=== PATIENT | female | born 1990 | race Caucasian/White ===

== ENCOUNTER 2016-12-20 14:18 | Outpatient (CLI) | payer OTHER ==
[~2016-12-20] VITALS: Ht 170.2 cm; Wt 84.5 kg
[~2016-12-20 14:18] MED LIST: AMBIEN 10MG10 MG PO; AMOXICILLIN/CLA1 TA1 PO; BENTYL 20MG TAB20 MG PO; DESYREL 50MG50 MG PO; EPI EZ PEN1 MG/ML IM; FLEXERIL 1010 MG/TAB PO; KAPIDEX; KLONOPIN 0.5MG0.5 MG PO; LEXAPRO 10MG10 MG PO; LEXAPRO20 MG PO; LORTAB 5/500 501 TAB PO; MOTRIN 800800 MG/TAB PO; MULTIPLE VITAMI1 TAB PO; PERCOCET 325 MG1 TA2 PO; PRENATAL VITAMI1 TAB PO; RISPERDAL 0.5M0.5 MG PO; TRINESSA1 TAB PO; TYLENOL PM EXTR1 TA1 PO
[2016-12-20] MEDS ORDERED: NEXPLANON68 MG ID (14:59)
[2016-12-20 15:00] VITALS: BP 123/80; PULSE 92; TEMP 98.4
[2016-12-20 18:00] VITALS: BP 116/69; PULSE 88; TEMP 98.6
[2016-12-28] MEDS ORDERED: COMPAZINE 110 MG/TAB PO (14:41)
[2016-12-28] MEDS ORDERED: PRILOSEC 20MG20 MG PO (14:42)
[2017-01-26] MEDS ORDERED: REGLAN 10MG10 MG/TAB PO (11:12)
[2017-02-23] MEDS ORDERED: AMBIEN 10MG10 MG PO (15:21)
== END 2016-12-20 18:05 | disposition home or self-care (01) ==
LOC: EUO 14:18
DX: E86.0 Dehydration (principal); R51 Headache; R53.83 Other fatigue; R11.0 Nausea
CPT/HCPCS: J1200; J1885; J2405; J7030

== ENCOUNTER 2016-12-22 12:00 | Emergency (ER) | payer OTHER ==
[~2016-12-22] VITALS: Ht 167.6 cm; Wt 63.2 kg
[~2016-12-22 12:00] MED LIST changes: +NEXPLANON68 MG ID
[2016-12-22] MEDS ORDERED: NEXPLANON68 MG ID (12:21)
[2016-12-22 12:22] VITALS: BP 128/72; PULSE 96; TEMP 98
[2016-12-22 13:20] LABS: BASO % 0.5 % (0.0-2.0); EOS # 0.1 (0.0-0.7); EOS % 1.7 % (0-4.0); GRAN # 3.2 (1.4-6.5); GRAN % 48.4 % (42.2-75.2); HEMATOCRIT 38.5 % (37.0-47.0); HEMOGLOBIN 12.9 g/dl (12.5-16.0); LYMPH # 2.8 (1.2-3.4); LYMPH % 42.1 % (20.0-51.0); MEAN CELL VOLUME 84 fl (80.0-100.0); MEAN CORPUSCULAR HEMOGLOBIN 28 pg (27.0-31.0); MEAN CORPUSCULAR HGB CONC 34 g/dl (33.0-37.0); MONO # 0.5 (0.1-0.6); MONO % 7.1 % (1.7-9.3); PLATELET COUNT 379 K/mm3 (130-400); RED BLOOD COUNT 4.57 M/mm3 (4.10-5.30); REDCELL DISTRIBUTION WIDTH-CV 12.7 % (11.5-14.5); WHITE BLOOD COUNT 6.6 K/mm3 (4.8-10.8)
[2016-12-22 13:38] LABS: ALANINE AMINOTRANSFERASE 36 U/L (9-52); ALKALINE PHOSPHATASE 68 U/L (50-136); ANION GAP 12 mmol/L (7-16); BILIRUBIN,TOTAL 0.7 mg/dL (0.0-1.0); BLOOD UREA NITROGEN 8 mg/dL (7-17); CARBON DIOXIDE 24 mmol/L (22-30); CHLORIDE 103 mmol/L (98-107); CREATININE, serum 0.68 mg/dL (0.52-1.25); GLUCOSE 82 mg/dL (74-106); POTASSIUM 3.8 mmol/L (3.4-5.0); SODIUM 140 mmol/L (137-145); TOTAL PROTEIN 7.2 gm/dL (6.4-8.2)
[2016-12-22 13:40] LABS: C-REACTIVE PROTEIN < 0.5 mg/dL (0.0-0.9)
[2016-12-22 13:43] LABS: PH 6 (5-8); URINE APPEARANCE Hazy; URINE BACTERIA Rare /hpf; URINE BILIRUBIN Negative (NEGATIVE); URINE BLOOD Negative (NEGATIVE); URINE COLOR Yellow; URINE GLUCOSE Negative (NEGATIVE); URINE KETONE Negative (NEGATIVE); URINE RBC 0-2 /hpf; URINE UROBILINOGEN Negative (NEGATIVE)
[2016-12-22] MEDS ORDERED: ZOFRAN ODT4 MG PO (14:16)
[2016-12-28] MEDS ORDERED: COMPAZINE 110 MG/TAB PO (14:41)
[2016-12-28] MEDS ORDERED: PRILOSEC 20MG20 MG PO (14:42)
[2017-01-26] MEDS ORDERED: REGLAN 10MG10 MG/TAB PO (11:12)
[2017-02-23] MEDS ORDERED: AMBIEN 10MG10 MG PO (15:21)
== END 2016-12-22 15:12 | disposition home or self-care (01) ==
LOC: COL.ER 12:00
PROVIDERS: Physician Assistant
DX: R11.2 Nausea with vomiting, unspecified (principal); G43.909 Migraine, unspecified, not intractable, without status migrainosus; R53.81 Other malaise; R10.13 Epigastric pain
CPT/HCPCS: J1885; J2405; J2550; J7030

== ENCOUNTER → 2016-12-28 | Outpatient (CLI) | payer OTHER ==
[~2016-12-28] VITALS: Ht 167.6 cm; Wt 84.5 kg
[~2016-12-28] MED LIST changes: +CARAFATE 1GM1 G PO; +COMPAZINE 110 MG/TAB PO; +ELIQUIS 5MG PO; +PRILOSEC 20MG20 MG PO; +REGLAN 10MG10 MG/TAB PO; +ZOFRAN ODT4 MG PO
[2016-12-28 14:44] VITALS: BP 118/80; PULSE 97; TEMP 98.5
== END ==
LOC: EUO 14:26
DX: G43.A1 Cyclical vomiting, in migraine, intractable (principal)
CPT/HCPCS: J1200; J1885; J2405; J7030

== ENCOUNTER 2017-01-01 17:16 | Emergency (ER) | payer OTHER ==
[~2017-01-01] VITALS: Ht 167.6 cm; Wt 84.5 kg
[~2017-01-01 17:16] MED LIST changes: -CARAFATE 1GM1 G PO; -ELIQUIS 5MG PO; -REGLAN 10MG10 MG/TAB PO
[2017-01-01 17:18] VITALS: TEMP 98.9
[2017-01-01] MEDS ORDERED: CARAFATE 1GM1 G PO (17:21)
[2017-01-01 18:08] LABS: PH 6 (5-8); URINE APPEARANCE Hazy; URINE BACTERIA Rare /hpf; URINE BILIRUBIN Negative (NEGATIVE); URINE BLOOD Negative (NEGATIVE); URINE COLOR Yellow; URINE GLUCOSE Negative (NEGATIVE); URINE KETONE Negative (NEGATIVE); URINE RBC 0-2 /hpf; URINE UROBILINOGEN Negative (NEGATIVE)
[2017-01-01 18:32] LABS: ADJUSTED CALCIUM 8.9 mg/dL (8.4-10.2); ALBUMIN 4.3 gm/dL (3.5-5.0); BILIRUBIN,TOTAL 0.7 mg/dL (0.0-1.0); CALCIUM 9.1 mg/dL (8.4-10.2); CREATININE, serum 0.69 mg/dL (0.52-1.25); POTASSIUM 3.4 mmol/L (3.4-5.0); TOTAL PROTEIN 7.5 gm/dL (6.4-8.2)
[2017-01-01 18:38] LABS: BASO % 0.6 % (0.0-2.0); EOS # 0.2 (0.0-0.7); EOS % 2.3 % (0-4.0); GRAN # 2.7 (1.4-6.5); GRAN % 41.8 % (42.2-75.2); HEMATOCRIT 37.1 % (37.0-47.0); HEMOGLOBIN 12.8 g/dl (12.5-16.0); LYMPH % 47.3 % (20.0-51.0); MEAN CELL VOLUME 82 fl (80.0-100.0); MEAN CORPUSCULAR HEMOGLOBIN 28 pg (27.0-31.0); MEAN CORPUSCULAR HGB CONC 35 g/dl (33.0-37.0); MEAN PLATELET VOLUME 9.3 fl (7.4-10.4); MONO # 0.5 (0.1-0.6); MONO % 7.8 % (1.7-9.3); PLATELET COUNT 371 K/mm3 (130-400); RED BLOOD COUNT 4.51 M/mm3 (4.10-5.30); REDCELL DISTRIBUTION WIDTH-CV 12.3 % (11.5-14.5); WHITE BLOOD COUNT 6.4 K/mm3 (4.8-10.8)
[2017-01-01 21:08] VITALS: BP 131/85; PULSE 91
[2017-01-26] MEDS ORDERED: REGLAN 10MG10 MG/TAB PO (11:12)
[2017-02-23] MEDS ORDERED: AMBIEN 10MG10 MG PO (15:21)
== END 2017-01-01 21:09 | disposition home or self-care (01) ==
LOC: COL.ER 17:16
PROVIDERS: Nurse Practitioner
DX: R10.84 Generalized abdominal pain (principal); K59.00 Constipation, unspecified; K29.70 Gastritis, unspecified, without bleeding; R11.10 Vomiting, unspecified; G43.909 Migraine, unspecified, not intractable, without status migrainosus; K20.9 Esophagitis, unspecified
CPT/HCPCS: J1200; J1885; J2405; J2765; J7030; Q9967

== ENCOUNTER 2017-01-12 07:22 | Outpatient (CLI) | payer OTHER ==
[~2017-01-12] VITALS: Ht 167.6 cm; Wt 82.7 kg
[~2017-01-12 07:22] MED LIST changes: +CARAFATE 1GM1 G PO
[2017-01-12 11:34] VITALS: BP 118/75; PULSE 93; TEMP 98.1
[2017-01-26] MEDS ORDERED: REGLAN 10MG10 MG/TAB PO (11:12)
[2017-02-23] MEDS ORDERED: AMBIEN 10MG10 MG PO (15:21)
== END 2017-01-12 18:48 | disposition home or self-care (01) ==
LOC: COL.RAD 07:22
DX: G43.909 Migraine, unspecified, not intractable, without status migrainosus (principal); E86.0 Dehydration
CPT/HCPCS: A9585; J1200; J1885; J2405; J7030

== ENCOUNTER 2017-01-28 22:09 | Emergency (ER) | payer OTHER ==
[~2017-01-28] VITALS: Ht 167.6 cm; Wt 82.7 kg
[~2017-01-28 22:09] MED LIST changes: +REGLAN 10MG10 MG/TAB PO
[2017-01-28 22:15] VITALS: TEMP 98.5
[2017-01-28 23:20] LABS: BASO % 0.6 % (0.0-2.0); EOS # 0.1 (0.0-0.7); EOS % 2.1 % (0-4.0); GRAN # 2.9 (1.4-6.5); GRAN % 44.2 % (42.2-75.2); HEMATOCRIT 40.3 % (37.0-47.0); HEMOGLOBIN 13.7 g/dl (12.5-16.0); LYMPH % 45.8 % (20.0-51.0); MEAN CELL VOLUME 83 fl (80.0-100.0); MEAN CORPUSCULAR HEMOGLOBIN 28 pg (27.0-31.0); MEAN CORPUSCULAR HGB CONC 34 g/dl (33.0-37.0); MEAN PLATELET VOLUME 9.1 fl (7.4-10.4); MONO # 0.5 (0.1-0.6); PLATELET COUNT 347 K/mm3 (130-400); RED BLOOD COUNT 4.88 M/mm3 (4.10-5.30); WHITE BLOOD COUNT 6.6 K/mm3 (4.8-10.8)
[2017-01-28 23:32] LABS: ANION GAP 15 mmol/L (7-16); BLOOD UREA NITROGEN 12 mg/dL (7-17); C-REACTIVE PROTEIN < 0.5 mg/dL (0.0-0.9); CALCIUM 9.6 mg/dL (8.4-10.2); CARBON DIOXIDE 22 mmol/L (22-30); CHLORIDE 102 mmol/L (98-107); CREATININE, serum 0.59 mg/dL (0.52-1.25); GLUCOSE 103 mg/dL (74-106); POTASSIUM 3.7 mmol/L (3.4-5.0); SODIUM 139 mmol/L (137-145)
[2017-01-29 00:03] LABS: ERYTHROCYTE SEDIMENTATION RATE 13 mm/hr (0-20)
[2017-01-29 00:56] LABS: PH 6 (5-8); SQUAMOUS EPITHELIAL 0-2 /hpf; URINE APPEARANCE Hazy; URINE BACTERIA Moderate /hpf; URINE BILIRUBIN Negative (NEGATIVE); URINE BLOOD Negative (NEGATIVE); URINE COLOR Yellow; URINE GLUCOSE Negative (NEGATIVE); URINE KETONE Negative (NEGATIVE); URINE RBC 0-2 /hpf; URINE UROBILINOGEN Negative (NEGATIVE)
[2017-01-29] MEDS ORDERED: ELIQUIS 5MG PO (01:13)
[2017-01-29 01:19] VITALS: BP 122/84; PULSE 95
[2017-02-23] MEDS ORDERED: AMBIEN 10MG10 MG PO (15:21)
== END 2017-01-29 01:46 | disposition home or self-care (01) ==
LOC: COL.ER 22:09
PROVIDERS: Emergency Medicine
DX: I82.621 Acute embolism and thrombosis of deep veins of right upper extremity (principal); R50.9 Fever, unspecified; G40.909 Epilepsy, unspecified, not intractable, without status epilepticus; G43.909 Migraine, unspecified, not intractable, without status migrainosus; F32.9 Major depressive disorder, single episode, unspecified; K31.84 Gastroparesis

== ENCOUNTER 2017-03-20 09:15 | Outpatient (RCR) | payer OTHER ==
[2017-01-15 14:38] VITALS: BP 111/75; PULSE 76; TEMP 97.7
[2017-01-15 18:21] VITALS: BP 111/71; PULSE 75; TEMP 98.6
[2017-01-16 11:09] VITALS: BP 112/72; PULSE 88; TEMP 98.6
[2017-01-19 12:41] VITALS: BP 111/85; PULSE 89; TEMP 98.6
[2017-01-23 15:01] VITALS: BP 116/80; PULSE 121; TEMP 98.3
[2017-01-23 18:20] VITALS: BP 95/62; PULSE 91; TEMP 98.6
[2017-01-26 11:13] VITALS: BP 110/80; PULSE 95; TEMP 98.3
[2017-01-26 13:07] VITALS: BP 109/72; PULSE 89; TEMP 97.8
[2017-01-26 13:51] VITALS: BP 114/74; PULSE 86
[2017-01-31 15:00] VITALS: BP 110/77; PULSE 114; TEMP 98.2
[2017-02-02 13:03] VITALS: BP 106/74; PULSE 117; TEMP 98.6
[2017-02-05 09:23] VITALS: BP 112/79; PULSE 116; TEMP 98
[2017-02-07 11:41] VITALS: BP 118/72; PULSE 129; TEMP 98.1
[2017-02-12 14:57] VITALS: BP 105/69; PULSE 104; TEMP 98.4
[2017-02-14 11:39] VITALS: BP 127/90; PULSE 114; TEMP 98.5
[2017-02-21 12:49] VITALS: BP 116/82; PULSE 119; TEMP 98.5
[2017-02-23 16:55] VITALS: BP 109/69; PULSE 99; TEMP 98.5
[2017-02-28 11:30] VITALS: BP 99/68; PULSE 113; TEMP 98.4
[2017-03-05 13:20] VITALS: BP 113/78; PULSE 112; TEMP 98.6
[2017-03-07 15:30] VITALS: BP 126/90; PULSE 98; TEMP 99.9
[2017-03-14 12:43] VITALS: BP 124/91; PULSE 81; TEMP 98.9
[~2017-03-20] VITALS: Ht 167.6 cm; Wt 82.7 kg
[2017-03-20 09:15] VITALS: BP 120/82; PULSE 106; TEMP 98.6
[~2017-03-20 09:15] MED LIST changes: +ELIQUIS 5MG PO
[2017-03-23 11:07] VITALS: BP 121/84; PULSE 107; TEMP 98.7
== END 2017-03-23 14:37 | disposition home or self-care (01) ==
LOC: EUO 09:15
DX: E86.0 Dehydration (principal); E46 Unspecified protein-calorie malnutrition; R11.10 Vomiting, unspecified; G43.909 Migraine, unspecified, not intractable, without status migrainosus
CPT/HCPCS: C1751; C1894; J1200; J1644; J1885; J2175; J2405; J2550; J7030

== ENCOUNTER 2017-03-28 11:09 | Outpatient (RCR) | payer OTHER ==
[~2017-03-28] VITALS: Ht 167.6 cm; Wt 88.1 kg
[2017-03-28 11:20] VITALS: BP 112/77; PULSE 95; TEMP 98.8
[2017-03-29 13:59] VITALS: BP 121/80; PULSE 89; TEMP 98.3
== END 2017-03-29 14:04 | disposition home or self-care (01) ==
LOC: EUO 11:09
DX: Z45.2 Encounter for adjustment and management of vascular access device (principal); G43.009 Migraine without aura, not intractable, without status migrainosus
CPT/HCPCS: J1200; J1644; J1885; J2175; J2405; J2550; J7030

== ENCOUNTER 2017-07-18 12:16 | Emergency (ER) | payer MEDICAID ==
[~2017-07-18] VITALS: Ht 167.6 cm; Wt 79.2 kg
[2017-07-18 12:20] VITALS: TEMP 98.2
[2017-07-18] MEDS ORDERED: DESYREL 100MG100 MG PO (12:38)
[2017-07-18] MEDS ORDERED: PAMELOR 25MG25 MG PO (12:39)
[2017-07-18] MEDS ORDERED: COMPAZINE 110 MG/TAB PO (12:39)
[2017-07-18] MEDS ORDERED: PAXIL 10MG10 MG PO (12:39)
[2017-07-18] MEDS ORDERED: DEPAKOTE ER 50500 MG PO (12:40)
[2017-07-18 13:02] LABS: COLLECTION METHOD CLEAN CATCH
[2017-07-18 13:06] LABS: BASO % 0.7 % (0.0-2.0); EOS # 0.1 (0.0-0.7); EOS % 1.7 % (0-4.0); GRAN # 2.5 (1.4-6.5); GRAN % 41.7 % (42.2-75.2); HEMATOCRIT 39.2 % (37.0-47.0); HEMOGLOBIN 13.2 g/dl (12.5-16.0); LYMPH # 2.8 (1.2-3.4); LYMPH % 45.5 % (20.0-51.0); MEAN CELL VOLUME 87 fl (80.0-100.0); MEAN CORPUSCULAR HEMOGLOBIN 29 pg (27.0-31.0); MEAN CORPUSCULAR HGB CONC 34 g/dl (33.0-37.0); MONO # 0.6 (0.1-0.6); MONO % 10.4 % (1.7-9.3); PLATELET COUNT 318 K/mm3 (130-400); RED BLOOD COUNT 4.53 M/mm3 (4.10-5.30); WHITE BLOOD COUNT 6.1 K/mm3 (4.8-10.8)
[2017-07-18 13:16] LABS: MUCOUS Present /lpf; PH 6 (5-8); URINE APPEARANCE Cloudy; URINE BACTERIA Occasional /hpf; URINE BILIRUBIN Negative (NEGATIVE); URINE BLOOD Negative (NEGATIVE); URINE COLOR Amber; URINE GLUCOSE Negative (NEGATIVE); URINE KETONE Trace (NEGATIVE); URINE LEUKOCYTE ESTERASE Trace (NEGATIVE); URINE PROTEIN(semi-quant) 1+ (NEGATIVE); URINE RBC 0-2 /hpf; URINE UROBILINOGEN Negative (NEGATIVE)
[2017-07-18 13:35] LABS: ADJUSTED CALCIUM 9.3 mg/dL (8.4-10.2); ALBUMIN 4.4 gm/dL (3.5-5.0); BILIRUBIN,TOTAL 0.4 mg/dL (0.0-1.0); C-REACTIVE PROTEIN 0.7 mg/dL (0.0-0.9); CALCIUM 9.6 mg/dL (8.4-10.2); CREATININE, serum 0.7 mg/dL (0.52-1.25); TOTAL PROTEIN 7.7 gm/dL (6.4-8.2)
[2017-07-18 14:00] VITALS: BP 107/79
[2017-07-18] MEDS ORDERED: PHENERGAN 25 TA25 MG PO (16:24)
[2017-07-18 16:25] VITALS: PULSE 90
== END 2017-07-18 16:25 | disposition home or self-care (01) ==
LOC: COL.ER 12:16
PROVIDERS: Emergency Medicine; Physician Assistant
DX: K59.00 Constipation, unspecified (principal); R11.10 Vomiting, unspecified; K31.84 Gastroparesis; F43.10 Post-traumatic stress disorder, unspecified; G43.909 Migraine, unspecified, not intractable, without status migrainosus; Z86.718 Personal history of other venous thrombosis and embolism
CPT/HCPCS: J1200; J1885; J2060; J2175; J2405; J2550; J2765; J7030

== ENCOUNTER 2017-09-13 16:18 | Emergency (ER) | payer MEDICAID ==
[~2017-09-13] VITALS: Ht 167.6 cm; Wt 79.5 kg
[~2017-09-13 16:18] MED LIST changes: +DEPAKOTE ER 50500 MG PO; +DESYREL 100MG100 MG PO; +PAMELOR 25MG25 MG PO; +PAXIL 10MG10 MG PO; +PHENERGAN 25 TA25 MG PO
[2017-09-13 16:26] VITALS: BP 123/81; TEMP 99.1
[2017-09-13 17:34] LABS: COLLECTION METHOD CLEAN CATCH
[2017-09-13 17:41] LABS: MUCOUS Present /lpf; PH 7 (5-8); URINE APPEARANCE Hazy; URINE BACTERIA None Seen /hpf; URINE BILIRUBIN Negative (NEGATIVE); URINE BLOOD Negative (NEGATIVE); URINE COLOR Yellow; URINE GLUCOSE Negative (NEGATIVE); URINE KETONE Negative (NEGATIVE); URINE LEUKOCYTE ESTERASE 2+ (NEGATIVE); URINE NITRATE Negative (NEGATIVE); URINE PROTEIN(semi-quant) Negative (NEGATIVE); URINE RBC 0-2 /hpf; URINE UROBILINOGEN Negative (NEGATIVE)
[2017-09-13 19:44] VITALS: PULSE 98
== END 2017-09-13 19:45 | disposition home or self-care (01) ==
LOC: COL.ER 16:18
PROVIDERS: Emergency Medicine
DX: G43.909 Migraine, unspecified, not intractable, without status migrainosus (principal); K31.84 Gastroparesis; F17.210 Nicotine dependence, cigarettes, uncomplicated; Z98.890 Other specified postprocedural states
CPT/HCPCS: J1200; J2175; J2405; J2550; J2765; J7030

== ENCOUNTER 2017-09-19 14:10 | Emergency (ER) | payer MEDICAID ==
[~2017-09-19] VITALS: Ht 167.6 cm; Wt 79.5 kg
[2017-09-19 14:17] VITALS: TEMP 98.9
[2017-09-19 16:04] LABS: BASO % 0.4 % (0.0-2.0); EOS # 0.2 (0.0-0.7); EOS % 1.8 % (0-4.0); GRAN % 59.9 % (42.2-75.2); HEMATOCRIT 41.2 % (37.0-47.0); HEMOGLOBIN 13.4 g/dl (12.5-16.0); LYMPH # 2.5 (1.2-3.4); LYMPH % 30.6 % (20.0-51.0); MEAN CELL VOLUME 88 fl (80.0-100.0); MEAN CORPUSCULAR HEMOGLOBIN 29 pg (27.0-31.0); MEAN CORPUSCULAR HGB CONC 33 g/dl (33.0-37.0); MEAN PLATELET VOLUME 8.8 fl (7.4-10.4); MONO # 0.6 (0.1-0.6); MONO % 7.1 % (1.7-9.3); PLATELET COUNT 392 K/mm3 (130-400); RED BLOOD COUNT 4.68 M/mm3 (4.10-5.30); REDCELL DISTRIBUTION WIDTH-CV 12.4 % (11.5-14.5)
[2017-09-19 16:18] LABS: ALBUMIN 4.7 gm/dL (3.5-5.0); BILIRUBIN,TOTAL 0.6 mg/dL (0.0-1.0); C-REACTIVE PROTEIN 0.7 mg/dL (0.0-0.9); CREATININE, serum 0.71 mg/dL (0.52-1.25); POTASSIUM 4.2 mmol/L (3.4-5.0); TOTAL PROTEIN 8.7 gm/dL (6.4-8.2)
[2017-09-19] MEDS ORDERED: PHENERGAN 25 TA25 MG PO (16:45)
[2017-09-19 16:48] VITALS: BP 105/78; PULSE 97
== END 2017-09-19 17:03 | disposition home or self-care (01) ==
LOC: COL.ER 14:10
PROVIDERS: Emergency Medicine
DX: K31.84 Gastroparesis (principal); G43.909 Migraine, unspecified, not intractable, without status migrainosus; Z88.0 Allergy status to penicillin; Z88.8 Allergy status to other drugs, medicaments and biological substances
CPT/HCPCS: J1170; J2550

== ENCOUNTER 2017-09-22 11:55 | Emergency (ER) | payer MEDICAID ==
[~2017-09-22] VITALS: Ht 167.6 cm; Wt 79.5 kg
[2017-09-22 11:57] VITALS: BP 110/81; TEMP 99.2
[2017-09-22 15:24] VITALS: PULSE 86
== END 2017-09-22 15:24 | disposition home or self-care (01) ==
LOC: COL.ER 11:55
DX: K31.84 Gastroparesis (principal); G43.909 Migraine, unspecified, not intractable, without status migrainosus; F43.10 Post-traumatic stress disorder, unspecified; F41.9 Anxiety disorder, unspecified; Z87.891 Personal history of nicotine dependence; Z98.890 Other specified postprocedural states
CPT/HCPCS: C9113; J1200; J1630; J2060; J2405; J7030

== ENCOUNTER 2018-04-18 15:34 | Emergency (ER) | payer BC, MEDICAID ==
[~2018-04-18] VITALS: Ht 167.6 cm; Wt 95.0 kg
[~2018-04-18 15:34] MED LIST changes: -PRENATAL PO; -PROMETHAZINE12.5 M5 PO
[2018-04-18 15:38] VITALS: BP 121/77; TEMP 98.5
[2018-04-18 16:14] LABS: BASO % 0.3 % (0.0-2.0); EOS # 0.1 (0.0-0.7); EOS % 1.1 % (0-4.0); GRAN # 3.9 (1.4-6.5); GRAN % 52.8 % (42.2-75.2); HEMOGLOBIN 11.6 g/dl (12.5-16.0); LYMPH # 2.6 (1.2-3.4); LYMPH % 34.9 % (20.0-51.0); MEAN CELL VOLUME 81 fl (80.0-100.0); MEAN CORPUSCULAR HEMOGLOBIN 28 pg (27.0-31.0); MEAN CORPUSCULAR HGB CONC 34 g/dl (33.0-37.0); MONO # 0.8 (0.1-0.6); MONO % 10.5 % (1.7-9.3); PLATELET COUNT 422 K/mm3 (130-400); RED BLOOD COUNT 4.22 M/mm3 (4.10-5.30); REDCELL DISTRIBUTION WIDTH-CV 13.5 % (11.5-14.5)
[2018-04-18] MEDS ORDERED: PROMETHAZINE12.5 M5 PO (16:15)
[2018-04-18] MEDS ORDERED: PRENATAL PO (16:16)
[2018-04-18 16:23] LABS: ALBUMIN 3.6 gm/dL (3.5-5.0); BILIRUBIN,TOTAL 0.2 mg/dL (0.0-1.0); CREATININE, serum 0.39 mg/dL (0.52-1.25); MAGNESIUM 1.8 mg/dL (1.6-2.3); POTASSIUM 3.3 mmol/L (3.4-5.0)
[2018-04-18] MEDS ORDERED: REGLAN 10MG10 MG/TAB PO (16:46)
[2018-04-18 16:53] VITALS: PULSE 99
== END 2018-04-18 16:54 | disposition home or self-care (01) ==
LOC: COL.ER 15:34
PROVIDERS: Nurse Practitioner
DX: O21.0 Mild hyperemesis gravidarum (principal); O26.892 Other specified pregnancy related conditions, second trimester; E86.0 Dehydration; O99.342 Other mental disorders complicating pregnancy, second trimester; F32.9 Major depressive disorder, single episode, unspecified; Z3A.14 14 weeks gestation of pregnancy
CPT/HCPCS: J2765; J7030

== ENCOUNTER → 2018-04-18 | Outpatient (CLI) | payer BC, MEDICAID ==
[~2018-04-18] MED LIST changes: +PRENATAL PO; +PROMETHAZINE12.5 M5 PO
== END ==
LOC: COL.RAD 08:15
DX: O99.89 Other specified diseases and conditions complicating pregnancy, childbirth and the puerperium (principal); R10.11 Right upper quadrant pain; K92.0 Hematemesis

== ENCOUNTER 2018-07-12 22:36 | Outpatient (CLI) | payer BC, OTHER ==
[~2018-07-12] VITALS: Ht 167.6 cm; Wt 100.0 kg
[~2018-07-12 22:36] MED LIST changes: +PRENATAL PO; +PROMETHAZINE12.5 M5 PO
[2018-07-12 23:02] VITALS: BP 116/69; PULSE 113; TEMP 98.4
== END 2018-07-13 01:15 | disposition home or self-care (01) ==
LOC: LDRO 22:36
DX: Z34.92 Encounter for supervision of normal pregnancy, unspecified, second trimester (principal); Z3A.26 26 weeks gestation of pregnancy

== ENCOUNTER 2018-09-22 23:10 | Outpatient (CLI) | payer BC, OTHER ==
[~2018-09-22] VITALS: Ht 165.1 cm; Wt 109.1 kg
--- NOTE | 2018-09-22 23:20 | NUR ---
2320- PT PRESENTS TO LDR COMPLAINGING OF CONTRACTIONS, TO ROOM LR5 PER WHEELCHAIR, CHANGED INTO GOWN. 2327- EFM X2 APPLIED. PT STATES CONTRACTIONS HAVE "TAKEN HER BREATH AWAY" FOR ABOUT 2 HOURS NOW, DENIES LEAKING FLUID OR VAGINAL BLEEDING. STATES SHE IS FEELING THE BABY MOVE. PLAN OF CARE DISCUSSED. 2335- SVE BY THIS NURSE . DISCUSSED LABOR CHECK AND ANSWERED QUESTIONS. 2340- NURSING ADMISSION HISTORY AND ASSESSMENT COMPLETE. ORAL HYDRATION PROVIDED. 0010- PT UP TO BATHROOM. 0045- SVE BY THIS NURSE NO CHANGE. DISCUSSED PROBABLE DISMISSAL AND EARLY LABOR INSTRUCTIONS. PT QUESTIONS ANSWERED. 0054- DR MENDOZA CALLED AND UPDATED ON PT, SEE PHYSICIAN NOTIFICATION. ORDERS FOR DISMISSAL RECEIVED. 0105- DISMISSAL INSTRUCTIONS GIVEN AND PT VERBALIZES UNDERSTANDING. PT DISMISSED TO HOME AMBULATORY ACCOMPANIED BY SPOUSE.
[2018-09-22] MEDS ORDERED: ZYRTEC 10MG10 MG PO (23:53)
[2018-09-22] MEDS ORDERED: PRILOSEC 20MG20 MG PO (23:54)
[2018-09-23] VITALS: BP 136/92; PULSE 118; TEMP 99.2
[2018-09-23 00:50] VITALS: BP 146/86; PULSE 99
== END 2018-09-23 01:05 | disposition home or self-care (01) ==
LOC: LDRO 23:10
DX: O62.9 Abnormality of forces of labor, unspecified (principal); Z3A.36 36 weeks gestation of pregnancy

== ENCOUNTER → 2019-12-29 | Outpatient (CLI) | payer BC ==
[~2019-12-29] MED LIST changes: +BASAGLAR K100 UNIT/1 SQ; +IBU600 MG PO; +TAMIFLU 75MG75 MG PO; +ZYRTEC 10MG10 MG PO
== END ==
LOC: DIA.ED 12:45
DX: O24.419 Gestational diabetes mellitus in pregnancy, unspecified control (principal); Z79.4 Long term (current) use of insulin
CPT/HCPCS: G0108

== ENCOUNTER 2020-01-15 14:35 | Inpatient (IN) | payer BC ==
[~2020-01-15] VITALS: Ht 165.1 cm; Wt 113.6 kg
[2020-01-15] VITALS (21 sets, daily range): BP systolic 116–146; BP diastolic 52–93; PULSE 106–137; TEMP 97.8–98.5
[~2020-01-15 14:35] MED LIST changes: -BASAGLAR K100 UNIT/1 SQ; -IBU600 MG PO
[2020-01-15] MEDS ORDERED: BASAGLAR K100 UNIT/1 SQ (15:11)
[2020-01-15 16:41] LABS: BASO % 0.3 % (0.0-2.0); EOS # 0.1 (0.0-0.7); EOS % 1.1 % (0-4.0); GRAN # 7.3 (1.4-6.5); HEMATOCRIT 41.4 % (37.0-47.0); HEMOGLOBIN 13.6 g/dl (12.5-16.0); LYMPH # 1.9 (1.2-3.4); MEAN CELL VOLUME 86 fl (80.0-100.0); MEAN CORPUSCULAR HEMOGLOBIN 28 pg (27.0-31.0); MEAN CORPUSCULAR HGB CONC 33 g/dl (33.0-37.0); MEAN PLATELET VOLUME 9.7 fl (7.4-10.4); MONO # 0.7 (0.1-0.6); MONO % 7.2 % (1.7-9.3); PLATELET COUNT 274 K/mm3 (130-400); RED BLOOD COUNT 4.79 M/mm3 (4.10-5.30); REDCELL DISTRIBUTION WIDTH-CV 13.6 % (11.5-14.5)
--- NOTE | 2020-01-15 17:00 | NUR ---
Pt sitting at EOB for epidural placement. Difficulty tracing FHR due to maternal position. RN at bedside adjusting monitors. FHR audible.
[2020-01-15 17:47] LABS: COLLECTION METHOD CATHETER
[2020-01-15 17:53] LABS: MUCOUS Present /lpf; PH 6 (5-8); SQUAMOUS EPITHELIAL 0-2 /hpf; URINE APPEARANCE Hazy; URINE BACTERIA None Seen /hpf; URINE BILIRUBIN Negative (NEGATIVE); URINE BLOOD 2+ (NEGATIVE); URINE COLOR Yellow; URINE GLUCOSE Negative (NEGATIVE); URINE KETONE 1+ (NEGATIVE); URINE LEUKOCYTE ESTERASE Negative (NEGATIVE); URINE NITRATE Negative (NEGATIVE); URINE PROTEIN(semi-quant) Negative (NEGATIVE); URINE RBC >50 /hpf; URINE UROBILINOGEN Negative (NEGATIVE)
[2020-01-15 17:59] LABS: ALBUMIN 3.7 gm/dL (3.5-5.0); BILIRUBIN,TOTAL 0.3 mg/dL (0.0-1.0); CREATININE, serum 0.41 (0.52-1.25); POTASSIUM 3.9 mmol/L (3.4-5.0); TOTAL PROTEIN 7.2 gm/dL (6.4-8.2)
--- NOTE | 2020-01-15 18:25 | NUR ---
182 TO LL. ANXIOUS AND TEARFUL - REFERS TO INCREASING PELVIC PRESSURE BUT EPIDURAL STARTING TO WORK. 184 [employer] HERE TO EVAL EPIDURAL, HR 126- PT STATES SHE HAS PTSD AND FEELS OK NOW JUST HAS FAST HEART RATE DUE TO THAT. TO RT SIDE- SUSPECTING OP POSITION.WILL TURN POLO E TO SIDE TO ROTATE. 1851 9/+2 DR LUGO CALLED TO ATTEND DELIVERY. 1909 DR LUGO HERE.BED APART FOR DELIVERY. ISNTRUCTED HOW TO PUSH. SUPPRTS L]RT LEG. PUSHES WELL WITH ECNOURAGEMENT. 1916 MALE- TO MOTHERS ABDOMEN
--- NOTE | 2020-01-15 20:10 | NUR ---
C/O ITCHING FRANK GRANT GIVING
--- NOTE | 2020-01-15 20:49 | NUR ---
1899 HOPPER REMOVED FOR PUSHING
--- NOTE | 2020-01-15 22:39 | NUR ---
SEATED IN ROCKER- CHEERFUL -LESS ANXIOUS. SAYS ADI ROPER HAS KIDKED IN
--- NOTE | 2020-01-16 06:30 | NUR ---
Rests in bed, alert, holding baby. Denies any discomfort or pain at this time.
[2020-01-16 07:38] LABS: HEMATOCRIT 35.3 % (37.0-47.0); HEMOGLOBIN 11.6 g/dl (12.5-16.0)
[2020-01-16 08:30] VITALS: BP 116/77; PULSE 90; TEMP 97.6
--- NOTE | 2020-01-16 08:30 | NUR ---
0835 Percocet 5/325 mg two given per request and as ordered. Denies any other needs at this time.
[2020-01-16 11:30] VITALS: BP 114/66; PULSE 100; TEMP 98
--- NOTE | 2020-01-16 13:30 | NUR ---
Rests in bed, alert. Percocet 5/325 mg two given per request and as ordered.
[2020-01-16 16:30] VITALS: BP 125/88; PULSE 99; TEMP 98
--- NOTE | 2020-01-16 17:20 | NUR ---
Rests in chair, alert. Percocet 5/325 mg two, ibuprofen 600 mg one given per request and as ordered.
[2020-01-16 20:10] VITALS: BP 118/85; PULSE 93; TEMP 97.8
[2020-01-17 08:00] VITALS: BP 130/84; PULSE 100; TEMP 98.2
[2020-01-17] MEDS ORDERED: IBU600 MG PO (09:46)
== END 2020-01-17 10:30 | disposition home or self-care (01) | DRG 807 ==
LOC: LDRO 14:35 → LDR 15:01 → OB 22:20
PROVIDERS: Obstetrics & Gynecology; ADMIT Obstetrics & Gynecology
PROC: 10E0XZZ Delivery of Products of Conception, External Approach (ICD-10-PCS; principal; 2020-01-15)
DX: O42.02 Full-term premature rupture of membranes, onset of labor within 24 hours of rupture (principal); Z37.0 Single live birth; Z3A.38 38 weeks gestation of pregnancy; O99.214 Obesity complicating childbirth; K21.9 Gastro-esophageal reflux disease without esophagitis; O99.62 Diseases of the digestive system complicating childbirth; O99.344 Other mental disorders complicating childbirth; F41.9 Anxiety disorder, unspecified; O13.4 Gestational [pregnancy-induced] hypertension without significant proteinuria, complicating childbirth; O24.420 Gestational diabetes mellitus in childbirth, diet controlled; K31.84 Gastroparesis
CPT/HCPCS: J2210; J2590; J7030

== ENCOUNTER → 2020-05-21 | Outpatient (CLI) | payer BC ==
[~2020-05-21] MED LIST changes: +BASAGLAR K100 UNIT/1 SQ; +IBU600 MG PO
== END ==
LOC: ZCOL.LAB 17:54
DX: R50.9 Fever, unspecified (principal); R19.7 Diarrhea, unspecified; Z20.828 Contact with and (suspected) exposure to other viral communicable diseases